=== PATIENT | female | born 2000 | race African-American/Black ===

== ENCOUNTER 2025-02-02 11:55 | Emergency (ER) | payer BC ==
--- OUTSIDE RECORDS SUMMARY | 2025-02-02 12:06 | XMS REPORT | Continuity of Care Document ---
Author Name Unknown Address [address] [place] [address] [facility] Address [address] [place] [address] Care Team Providers Care C Developer Name Role Phone PCP, PATIENT DOES NOT HAVE A Primary Care Physic [place] Unavailable RADHA KAHN Attending Clinician Unavailable Radha Kahn DNP Attending Clinician [phone] Doctor Unassigned, [place] Attending Clinician U DEVI Becker Attending Clinician Unavailable RENETTA GONZALEZ Attending Clinician RENETTA Mccann Attending Clinician Leti zuleta Doctor Unassigned, [place] Attending Clinician U alexis Muller, Ang - Db Attending Clinician Unavailable Devi Romo Attending Clinician [phone] [email or web address] Attending Clinician UnavailANTON Carrero Attending Clinician UnavailANTON Carrero Attending Clinician UnavailJAVAN Chung Attending Clinician Unavailable Javan Mayen MD Attending Clinician [phone] Unknown, Attending Attending Clinician UnavailJUANITA Foster Attending Clinician Unavailable Juanita Villagran PA-C Attending Clinician [phone], [facility] Attending Clinician Unavailable Jyoti Valentin MD Attending Clinician [phone] JYOTI VALENTIN Attending Clinician Unavailable LEVI CARROLL Attending Clinician Unavailable [email or web address] Admitting Clinician Unavaila bridget Payers Payer Name Policy Type Policy Number Effective Date Expirati on Date Source [facility] [id number] 2024 00:00:00 Problems Condition Name Condition Details Condition Category Status Onset Date Resolution Date Last Treatment Date Treating Clinician Comments Source Acute cystitis Acute Cystitis Problem Active 11-29 00:00: 00 [facility] Acute vaginitis Acute Vaginitis Problem Active 11-29 00:00: 00 [facility] Chronic anemia Chronic anemia Disease Active 03-23 00:00: 00 [facility] Eczema Eczema Disease Active 06-17 00:00: 00 Overview: Formattin g of this note might be different from the original. Overview: desonide [facility] Psoriasis Psoriasis Disease Active 06-17 00:00: 00 Overview: Formattin g of this note might be different from the original. Overview: Followed by Dr. Anjel hansen [facility] No known active problems No known active problems Disease [facility] Encounter for wellness examinatio n Encounter for wellness examinatio n Diagnosis Active [facility] Iron deficiency anemia, unspecifie d iron deficiency anemia type Iron deficiency anemia, unspecifie d iron deficiency anemia type Diagnosis Active [facility] Chlamydia infection Chlamydia infection Disease Resolve d 2022-10 00:00: 00 2024-12-21 00:00:00 2024-12-21 12:12:18 [facility] Nexplanon in place Nexplanon in place Disease Resolve d 2-05 00:00: 00 2021-08-27 00:00:00 2021-08-27 09:56:02 [facility] Allergies, Adverse Reactions, Alerts Allergy Name Allergy Type Status Severity Reaction(s) Onset Date Inactive Date Treating Clinician Comments Source NO KNOWN ALLERGIE S Drug Class Active [facility] Social History Social Habit Start Date Stop Date Quantity Comments Source History SDOH Alcohol Std Drinks [facility] History SDOH Alcohol Binge [facility] Alcoholic beverage intake 2024-12-21 00:00:00 2024-12-21 00:00:00 Current drinker of alcohol (finding) [facility] History of Social function 2024-03-23 00:00:00 2024-03-23 00:00:00 [facility] Alcohol intake 2023-09-20 00:00:00 2023-09-20 00:00:00 Current drinker of alcohol (finding) [facility] Tobacco use and exposure 2023-04-12 00:00:00 2023-04-12 00:00:00 Smokeless tobacco non-user [facility] Exposure to SARS-CoV-2 (event) 2022-01-03 00:00:00 2022-02-02 14:57:00 Not sure [facility] Alcohol Comment 2021-10-12 00:00:00 2021-10-12 00:00:00 rare [facility] History SDOH Alcohol Frequency 2019-08-10 00:00:00 2019-08-10 00:00:00 1 [facility] Sex assigned at 2001 00:00:00 2001 00:00:00 [facility] Smoking Status Start Date Stop Date Source Never smoked tobacco [facility] Medications Ordered Medication Name Filled Medication Name Start Date Stop Date Current Medication? Ordering Clinician Indication Dosage Frequency Signature (SIG) Comments Components Source metroNIDAZO LE 500 mg tablet 12-24 00:00: 00 01-01 05:59 :00 Yes [id number] 500mg Take 1 tablet by mouth in the morning and 1 tablet in the evening. Do all this for 7 days. [facility] fluconazole 150 mg tablet 12-24 00:00: 00 12-25 05:59 :00 Yes [id number] 150mg Take 1 tablet by mouth once now for 1 dose. [facility] ixekizumab (TALTZ AUTOINJECTO R, 2 PACK,) 80 mg/mL 12-21 12:12: 31 12-21 00:00 :00 No inject under the skin. [facility] Nitrofurant oin&Nit. Macrocryst (MACROBID) 100 mg capsule 12-21 00:00: 00 12-27 05:59 :00 Yes [id number] 100mg Take 1 capsule by mouth in the morning and 1 capsule in the evening. Do all this for 5 days. [facility] doxycycline hyclate 100 mg tablet 04-19 00:00: 00 09-20 00:00 :00 No [id number] 100mg Take 1 tablet by mouth in the morning and 1 tablet in the evening. [facility] adalimumab (HUMIRA PEN SC) 04-15 16:10: 43 04-15 00:00 :00 No inject under the skin. [facility] Nitrofurant oin&Nit. Macrocryst 100 mg capsule 04-12 00:00: 00 04-18 04:59 :00 No [id number] 100mg Take 1 capsule by mouth in the morning and 1 capsule in the evening. Do all this for 5 days. [facility] medroxyPROG ESTERone (PROVERA) 10 mg tablet 05 00:00: 00 04-15 00:00 :00 No [id number] 10mg Take 1 tablet by mouth daily. [facility] ixekizumab (TALTZ AUTOINJECTO R, 2 PACK,) 80 mg/mL 2019-10 210 14:16: 36 Yes inject under the skin. [facility] adalimumab (HUMIRA PEN SC) 05-14 16:20: 20 Yes inject under the skin. [facility] ibuprofen 800 mg tablet 05-14 00:00: 00 09-20 00:00 :00 No [id number] 800mg Take 1 tablet by mouth 3 (three) times daily with meals. [facility] Fluocinolon e-Shower Cap 0.01 % oil 2016-1016 00:00: 00 04-15 00:00 :00 No Apply to area(s). [facility] Macrobid 100 mg capsule Take 1 capsule every 12 hours by oral route for 5 days. Macrobid 100 mg capsule Take 1 capsule every 12 hours by oral route for 5 days. No 1capsul e(s) Q12H Macrobid 100 mg capsule Take 1 capsule every 12 hours by oral route for 5 days. [facility] Azithromyci n Azithromyci n Yes Na Doan 2 tablets on the first day, then 1 tablet daily for 4 days [facility] Immunizations Ordered Immunization Name Filled Immunization Name Date Status Comments Source Pneumococcal 20 Conjugate, PCV20 (Prevnar 20) 2024-03-23 00:00:00 Completed [facility] Influenza Virus Vaccine Quad IM 3+ YRS 2017-08-15 00:00:00 Completed [facility] Influenza Virus Vaccine Quad IM 3+ YRS 2017-08-15 00:00:00 Completed [facility] Influenza Virus Vaccine Quad IM 3+ 2017-08-15 00:00:00 Completed [facility] Influenza Virus Vaccine Quad IM 3+ 2017-08-15 00:00:00 Completed [facility] Influenza Virus Vaccine Quad IM 3+ 2017-08-15 00:00:00 Completed [facility] Influenza Virus Vaccine Quad IM 3+ YRS 2017-08-15 00:00:00 Completed Meningococcal Polysaccharide (groups A, C, Y and W-135) conjugate vaccine (MCV4P) 2014-05-25 00:00:00 Completed [facility] TDAP 2014-05-25 00:00:00 Completed [facility] Meningococcal Polysaccharide (groups A, C, Y and W-135) conjugate vaccine (MCV4P) 2014-05-25 00:00:00 Completed [facility] TDAP 2014-05-25 00:00:00 Completed [facility] Meningococcal Polysaccharide (groups A, C, Y and W-135) conjugate vaccine (MCV4P) 2014-05-25 00:00:00 Completed [facility] TDAP 2014-05-25 00:00:00 Completed [facility] Meningococcal Polysaccharide (groups A, C, Y and W-135) conjugate vaccine (MCV4P) 2014-05-25 00:00:00 Completed [facility] TDAP 2014-05-25 00:00:00 Completed [facility] Meningococcal Polysaccharide (groups A, C, Y and W-135) conjugate vaccine (MCV4P) 2014-05-25 00:00:00 Completed [facility] TDAP 2014-05-25 00:00:00 Completed [facility] Meningococcal Polysaccharide (groups A, C, Y and W-135) conjugate vaccine (MCV4P) 2014-05-25 00:00:00 Completed TDAP 2014-05-25 00:00:00 Completed HPV 2012-01-29 00:00:00 Completed [facility] HPV 2012-01-29 00:00:00 Completed [facility] HPV 2012-01-29 00:00:00 Completed [facility] HPV 2012-01-29 00:00:00 Completed [facility] HPV 2012-01-29 00:00:00 Completed [facility] HPV 2012-01-29 00:00:00 Completed [facility] HPV 2011-09-18 00:00:00 Completed [facility] HPV 2011-09-18 00:00:00 Completed [facility] HPV 2011-09-18 00:00:00 Completed [facility] HPV 2011-09-18 00:00:00 Completed [facility] HPV 2011-09-18 00:00:00 Completed [facility] HPV 2011-09-18 00:00:00 Completed [facility] HPV 2011-06-17 00:00:00 Completed [facility] Influenza Virus Vaccine Nasal 2011-06-17 00:00:00 Completed [facility] HPV 2011-06-17 00:00:00 Completed [facility] Influenza Virus Vaccine Nasal 2011-06-17 00:00:00 Completed [facility] HPV 2011-06-17 00:00:00 Completed [facility] Influenza Virus Vaccine Nasal 2011-06-17 00:00:00 Completed [facility] HPV 2011-06-17 00:00:00 Completed [facility] Influenza Virus Vaccine Nasal 2011-06-17 00:00:00 Completed [facility] HPV 2011-06-17 00:00:00 Completed [facility] Influenza Virus Vaccine Nasal 2011-06-17 00:00:00 Completed [facility] HPV 2011-06-17 00:00:00 Completed [facility] Influenza, Live, Trivalent, Intranasal (FLUMIST) 2011-06-17 00:00:00 Completed [facility] Hep B, Adol or Pedi Dosage 2009-09-18 00:00:00 Completed [facility] Varicella (varivax)(chicken pox) 2009-09-18 00:00:00 Completed [facility] HEPATITIS A 2009-09-18 00:00:00 Completed [facility] Hep B, Adol or Pedi Dosage 2009-09-18 00:00:00 Completed [facility] Varicella (varivax)(chicken pox) 2009-09-18 00:00:00 Completed [facility] HEPATITIS A 2009-09-18 00:00:00 Completed [facility] Hep B, Adol or Pedi Dosage 2009-09-18 00:00:00 Completed [facility] Varicella (varivax)(chicken pox) 2009-09-18 00:00:00 Completed [facility] HEPATITIS A 2009-09-18 00:00:00 Completed [facility] Hep B, Adol or Pedi Dosage 2009-09-18 00:00:00 Completed [facility] Varicella (varivax)(chicken pox) 2009-09-18 00:00:00 Completed [facility] HEPATITIS A 2009-09-18 00:00:00 Completed [facility] Hep B, Adol or Pedi Dosage 2009-09-18 00:00:00 Completed [facility] Varicella (varivax)(chicken pox) 2009-09-18 00:00:00 Completed [facility] HEPATITIS A 2009-09-18 00:00:00 Completed [facility] Hep B, Adol or Pedi Dosage 2009-09-18 00:00:00 Completed [facility] Varicella (varivax)(chicken pox) 2009-09-18 00:00:00 Completed [facility] HEPATITIS A 2009-09-18 00:00:00 Completed [facility] HEPATITIS A 2005-06-02 00:00:00 Completed [facility] HEPATITIS A 2005-06-02 00:00:00 Completed [facility] HEPATITIS A 2005-06-02 00:00:00 Completed [facility] HEPATITIS A 2005-06-02 00:00:00 Completed [facility] HEPATITIS A 2005-06-02 00:00:00 Completed [facility] HEPATITIS A 2005-06-02 00:00:00 Completed [facility] DTAP 2005-05-24 00:00:00 Completed [facility] IPV 2005-05-24 00:00:00 Completed [facility] MMR 2005-05-24 00:00:00 Completed [facility] DTAP 2005-05-24 00:00:00 Completed [facility] IPV 2005-05-24 00:00:00 Completed [facility] MMR 2005-05-24 00:00:00 Completed [facility] DTAP 2005-05-24 00:00:00 Completed [facility] IPV 2005-05-24 00:00:00 Completed [facility] MMR 2005-05-24 00:00:00 Completed [facility] DTAP 2005-05-24 00:00:00 Completed [facility] IPV 2005-05-24 00:00:00 Completed [facility] MMR 2005-05-24 00:00:00 Completed [facility] DTAP 2005-05-24 00:00:00 Completed [facility] IPV 2005-05-24 00:00:00 Completed [facility] MMR 2005-05-24 00:00:00 Completed [facility] DTAP 2005-05-24 00:00:00 Completed IPV 2005-05-24 00:00:00 Completed [facility] MMR 2005-05-24 00:00:00 Completed [facility] DTAP 2002-05-16 00:00:00 Completed [facility] MMR 2002-05-16 00:00:00 Completed [facility] Varicella (varivax)(chicken pox) 2002-05-16 00:00:00 Completed [facility] HIB 4 Dose Schedule 2002-05-16 00:00:00 Completed [facility] DTAP 2002-05-16 00:00:00 Completed [facility] MMR 2002-05-16 00:00:00 Completed [facility] Varicella (varivax)(chicken pox) 2002-05-16 00:00:00 Completed [facility] HIB 4 Dose Schedule 2002-05-16 00:00:00 Completed [facility] DTAP 2002-05-16 00:00:00 Completed [facility] MMR 2002-05-16 00:00:00 Completed [facility] Varicella (varivax)(chicken pox) 2002-05-16 00:00:00 Completed [facility] HIB 4 Dose Schedule 2002-05-16 00:00:00 Completed [facility] DTAP 2002-05-16 00:00:00 Completed [facility] MMR 2002-05-16 00:00:00 Completed [facility] Varicella (varivax)(chicken pox) 2002-05-16 00:00:00 Completed [facility] HIB 4 Dose Schedule 2002-05-16 00:00:00 Completed [facility] DTAP 2002-05-16 00:00:00 Completed [facility] MMR 2002-05-16 00:00:00 Completed [facility] Varicella (varivax)(chicken pox) 2002-05-16 00:00:00 Completed [facility] HIB 4 Dose Schedule 2002-05-16 00:00:00 Completed [facility] DTAP 2002-05-16 00:00:00 Completed MMR 2002-05-16 00:00:00 Completed [facility] Varicella (varivax)(chicken pox) 2002-05-16 00:00:00 Completed [facility] HIB 4 Dose Schedule 2002-05-16 00:00:00 Completed [facility] DTAP 2001 00:00:00 Completed [facility] IPV 2001 00:00:00 Completed [facility] HIB 4 Dose Schedule 2001 00:00:00 Completed [facility] DTAP 2001 00:00:00 Completed [facility] IPV 2001 00:00:00 Completed [facility] HIB 4 Dose Schedule 2001 00:00:00 Completed [facility] DTAP 2001 00:00:00 Completed [facility] IPV 2001 00:00:00 Completed [facility] HIB 4 Dose Schedule 2001 00:00:00 Completed [facility] DTAP 2001 00:00:00 Completed [facility] IPV 2001 00:00:00 Completed [facility] HIB 4 Dose Schedule 2001 00:00:00 Completed [facility] DTAP 2001 00:00:00 Completed [facility] IPV 2001 00:00:00 Completed [facility] HIB 4 Dose Schedule 2001 00:00:00 Completed [facility] DTAP 2001 00:00:00 Completed IPV 2001 00:00:00 Completed [facility] HIB 4 Dose Schedule 2001 00:00:00 Completed DTAP 2001 00:00:00 Completed [facility] Hep B, Adol or Pedi Dosage 2001 00:00:00 Completed [facility] IPV 2001 00:00:00 Completed [facility] HIB 4 Dose Schedule 2001 00:00:00 Completed [facility] DTAP 2001 00:00:00 Completed [facility] Hep B, Adol or Pedi Dosage 2001 00:00:00 Completed [facility] IPV 2001 00:00:00 Completed [facility] HIB 4 Dose Schedule 2001 00:00:00 Completed [facility] DTAP 2001 00:00:00 Completed [facility] Hep B, Adol or Pedi Dosage 2001 00:00:00 Completed [facility] IPV 2001 00:00:00 Completed [facility] HIB 4 Dose Schedule 2001 00:00:00 Completed [facility] DTAP 2001 00:00:00 Completed [facility] Hep B, Adol or Pedi Dosage 2001 00:00:00 Completed [facility] IPV 2001 00:00:00 Completed [facility] HIB 4 Dose Schedule 2001 00:00:00 Completed [facility] DTAP 2001 00:00:00 Completed [facility] Hep B, Adol or Pedi Dosage 2001 00:00:00 Completed [facility] IPV 2001 00:00:00 Completed [facility] HIB 4 Dose Schedule 2001 00:00:00 Completed [facility] DTAP 2001 00:00:00 Completed Hep B, Adol or Pedi Dosage 2001 00:00:00 Completed IPV 2001 00:00:00 Completed [facility] HIB 4 Dose Schedule 2001 00:00:00 Completed DTAP 2001 00:00:00 Completed [facility] Hep B, Adol or Pedi Dosage 2001 00:00:00 Completed [facility] IPV 2001 00:00:00 Completed [facility] HIB 4 Dose Schedule 2001 00:00:00 Completed [facility] DTAP 2001 00:00:00 Completed [facility] Hep B, Adol or Pedi Dosage 2001 00:00:00 Completed [facility] IPV 2001 00:00:00 Completed [facility] HIB 4 Dose Schedule 2001 00:00:00 Completed [facility] DTAP 2001 00:00:00 Completed [facility] Hep B, Adol or Pedi Dosage 2001 00:00:00 Completed [facility] IPV 2001 00:00:00 Completed [facility] HIB 4 Dose Schedule 2001 00:00:00 Completed [facility] DTAP 2001 00:00:00 Completed [facility] Hep B, Adol or Pedi Dosage 2001 00:00:00 Completed [facility] IPV 2001 00:00:00 Completed [facility] HIB 4 Dose Schedule 2001 00:00:00 Completed [facility] DTAP 2001 00:00:00 Completed [facility] Hep B, Adol or Pedi Dosage 2001 00:00:00 Completed [facility] IPV 2001 00:00:00 Completed [facility] HIB 4 Dose Schedule 2001 00:00:00 Completed [facility] DTAP 2001 00:00:00 Completed Hep B, Adol or Pedi Dosage 2001 00:00:00 Completed IPV 2001 00:00:00 Completed [facility] HIB 4 Dose Schedule 2001 00:00:00 Completed [facility] Hep B, Adol or Pedi Dosage 2001 00:00:00 Completed [facility] Hep B, Adol or Pedi Dosage 2001 00:00:00 Completed [facility] Hep B, Adol or Pedi Dosage 2001 00:00:00 Completed [facility] Hep B, Adol or Pedi Dosage 2001 00:00:00 Completed [facility] Hep B, Adol or Pedi Dosage 2001 00:00:00 Completed [facility] Hep B, Adol or Pedi Dosage 2001 00:00:00 Completed Influenza Virus Vaccine Quad IM 3+ YRS Unknown Completed [facility] Influenza Virus Vaccine Nasal Unknown Completed [facility] Meningococcal Polysaccharide (groups A, C, Y and W-135) conjugate vaccine (MCV4P) Unknown Completed [facility] TDAP Unknown Completed [facility] DTAP Unknown Completed [facility] Hep B, Adol or Pedi Dosage Unknown Completed [facility] HPV Unknown Completed [facility] IPV Unknown Completed [facility] MMR Unknown Completed [facility] Varicella (varivax)(chicken pox) Unknown Completed [facility] HEPATITIS A Unknown Completed [facility] HIB 4 Dose Schedule Unknown Completed [facility] DTAP Unknown Completed [facility] Hep B, Adol or Pedi Dosage Unknown Completed [facility] HPV Unknown Completed [facility] Influenza Virus Vaccine Quad IM 3+ YRS Unknown Completed [facility] Influenza Virus Vaccine Nasal Unknown Completed [facility] IPV Unknown Completed [facility] Meningococcal Polysaccharide (groups A, C, Y and W-135) conjugate vaccine (MCV4P) Unknown Completed [facility] MMR Unknown Completed [facility] TDAP Unknown Completed [facility] Varicella (varivax)(chicken pox) Unknown Completed [facility] HEPATITIS A Unknown Completed [facility] HIB 4 Dose Schedule Unknown Completed [facility] Pneumococcal 20 Conjugate, PCV20 (Prevnar 20) Unknown Completed [facility] Influenza Virus Vaccine Quad IM 3+ YRS Unknown Completed [facility] Influenza Virus Vaccine Nasal Unknown Completed [facility] Meningococcal Polysaccharide (groups A, C, Y and W-135) conjugate vaccine (MCV4P) Unknown Completed [facility] TDAP Unknown Completed [facility] Pneumococcal 20 Conjugate, PCV20 (Prevnar 20) Unknown Completed [facility] DTAP Unknown Completed [facility] Hep B, Adol or Pedi Dosage Unknown Completed [facility] HPV Unknown Completed [facility] IPV Unknown Completed [facility] MMR Unknown Completed [facility] Varicella (varivax)(chicken pox) Unknown Completed [facility] HEPATITIS A Unknown Completed [facility] HIB 4 Dose Schedule Unknown Completed [facility] DTAP Unknown Completed [facility] Hep B, Adol or Pedi Dosage Unknown Completed [facility] HPV Unknown Completed [facility] Influenza Virus Vaccine Quad IM 3+ YRS Unknown Completed [facility] Influenza Virus Vaccine Nasal Unknown Completed [facility] IPV Unknown Completed [facility] Meningococcal Polysaccharide (groups A, C, Y and W-135) conjugate vaccine (MCV4P) Unknown Completed [facility] MMR Unknown Completed [facility] TDAP Unknown Completed [facility] Varicella (varivax)(chicken pox) Unknown Completed [facility] HEPATITIS A Unknown Completed [facility] HIB 4 Dose Schedule Unknown Completed [facility] Pneumococcal 20 Conjugate, PCV20 (Prevnar 20) Unknown Completed [facility] Vital Signs Vital Name Observation Time Observation Value Comments S ource Systolic blood pressure 2024-12-21 17:47:00 133 mm[Hg] [facility] Diastolic blood pressure 2024-12-21 17:47:00 79 mm[Hg] [facility] Heart rate 2024-12-21 17:47:00 67 /min [facility] temperature 2024-12-21 17:47:00 36.72 Kaela [facility] Respiratory rate 2024-12-21 17:47:00 18 /min [facility] Body height 2024-12-21 17:47:00 167.6 cm [facility] Body weight 2024-12-21 17:47:00 70.217 kg [facility] BMI 2024-12-21 17:47:00 24.99 kg/m2 [facility] BP Diastolic 2024-11-29 00:00:00 84 mm[Hg] [facility] Height 2024-11-29 00:00:00 67 [in_i] [facility] BMI (Body Mass Index) 2024-11-29 00:00:00 24 kg/m2 [facility] Body Weight 2024-11-29 00:00:00 153.4 [lb_av] [facility] BP Systolic 2024-11-29 00:00:00 129 mm[Hg] [facility] Systolic blood pressure 2024-03-23 14:01:00 108 mm[Hg] [facility] Diastolic blood pressure 2024-03-23 14:01:00 73 mm[Hg] [facility] Heart rate 2024-03-23 14:01:00 65 /min [facility] Body height 2024-03-23 14:01:00 165.1 cm [facility] Body weight 2024-03-23 14:01:00 68.584 kg [facility] BMI 2024-03-23 14:01:00 25.16 kg/m2 [facility] Oxygen saturation in Arterial blood by Pulse oximetry 2024-03-23 14:01:00 100 /min [facility] Systolic blood pressure 2023-09-20 22:24:00 121 mm[Hg] [facility] Diastolic blood pressure 2023-09-20 22:24:00 77 mm[Hg] [facility] Heart rate 2023-09-20 22:24:00 64 /min [facility] Body temperature 2023-09-20 22:24:00 36.33 Kaela [facility] Respiratory rate 2023-09-20 22:24:00 16 /min [facility] Body height 2023-09-20 22:24:00 165.1 cm [facility] Body weight 2023-09-20 22:24:00 68.312 kg [facility] BMI 2023-09-20 22:24:00 25.06 kg/m2 [facility] Oxygen saturation in Arterial blood by Pulse oximetry 2023-09-20 22:24:00 99 /min [facility] Systolic blood pressure 2023-04-15 21:09:00 123 mm[Hg] [facility] Diastolic blood pressure 2023-04-15 21:09:00 74 mm[Hg] [facility] Heart rate 2023-04-15 21:09:00 71 /min [facility] Body temperature 2023-04-15 21:09:00 36.78 Kaela [facility] Respiratory rate 2023-04-15 21:09:00 16 /min [facility] Body height 2023-04-15 21:09:00 165.1 cm [facility] Body weight 2023-04-15 21:09:00 67.994 kg [facility] BMI 2023-04-15 21:09:00 24.94 kg/m2 [facility] Oxygen saturation in Arterial blood by Pulse oximetry 2023-04-15 21:09:00 98 /min [facility] Systolic blood pressure 2023-04-12 18:01:00 130 mm[Hg] [facility] Diastolic blood pressure 2023-04-12 18:01:00 83 mm[Hg] [facility] Heart rate 2023-04-12 18:01:00 78 /min [facility] Body temperature 2023-04-12 18:01:00 36.89 Kaela [facility] Respiratory rate 2023-04-12 18:01:00 18 /min [facility] Body height 2023-04-12 18:01:00 167.6 cm [facility] Body weight 2023-04-12 18:01:00 68.312 kg [facility] BMI 2023-04-12 18:01:00 24.31 kg/m2 [facility] Oxygen saturation in Arterial blood by Pulse oximetry 2023-04-12 18:01:00 99 /min [facility] Systolic blood pressure 2022-02-02 20:36:00 129 mm[Hg] [facility] Diastolic blood pressure 2022-02-02 20:36:00 86 mm[Hg] [facility] Heart rate 2022-02-02 20:36:00 60 /min [facility] Respiratory rate 2022-02-02 20:36:00 18 /min [facility] Body height 2022-02-02 20:36:00 165.1 cm [facility] Body weight 2022-02-02 20:36:00 78.019 kg [facility] BMI 2022-02-02 20:36:00 28.62 kg/m2 [facility] Procedures Procedure Date / Time Performed Performing Clinician Source POCT URINALYSIS W/O SPECIFIC GRAVITY 2024-12-21 17:50:00 Radha Kahn [facility] PNEUMOCOCCAL 20 CONJUGATE (PREVNAR 20) VACCINE 2024-03-23 14:14:41 Devi Dugan [facility] POCT URINALYSIS 2023-04-12 18:03:00 [facility] 2023-04-12 18:02:00 Puneet Patel [facility] CONSENT/REFUSAL FOR DIAGNOSIS AND TREATMENT 2023-04-12 17:49:29 Doctor Unassigned, [place] [facility] ASSIGNMENT OF BENEFITS 2023-04-12 17:49:13 Docto r Unassigned, [place] [facility] POCT TEST 2022-02-02 00:00:00 Gavin Villagran [facility] Encounters Start Date/Time End Date/Time Encounter Type Admission Type Attending Clinicians Care Facility Care Department Encounter ID Source 2025-01-25 13:30:00 2025-01-25 13:30:[address] [facility] [id number] [facility] 2025-01-15 16:30:00 2025-01-15 16:30:[address] RADHA US [facility] [id number] [facility] 2025-01-01 14:30:00 2025-01-01 14:30:00 Outpatient R RADHA KAHN [facility] [id number] [facility] 2024-12-28 00:00:00 2024-12-31 11:57:49 Telephone Radha Kahn [facility] NAL [facility]ILDING 1.2.840.114 350.1.13.10 4.2.7.2.686 [id number] [facility] 2024-11-27 00:00:00 2024-12-29 18:15:44 Patient Secure Msg Doctor Unassigned, [place] Doctor Unassigned, [place] [facility] 1..840.114 350.1.13.10 4.2.7.2.686 [id number] [facility] 2024-12-24 00:00:00 2024-12-24 08:41:26 Case Management Radha Kahn [facility] 1.840.114 350.1.13.10 4.2.7.2.686 [id number] [facility] 2024-12-21 11:30:00 2024-12-21 12:06:28 Outpatient R RADHA KAHN [facility] [id number] [facility] 2024-12-21 11:30:00 2024-12-21 12:06:28 Office Visit Radha Kahn [facility] 1..840.114 350.1.13.10 4.2.7.2.686 [id number] [facility] 2024-12-10 11:30:00 2024-12-10 11:30:00 Outpatient R DEVI DUGAN [facility] [id number] [facility] 2024-11-29 00:00:00 2024-11-29 00:00:00 Rossana Guerrero, REPEATER CHIEF: [address], [address], [place] [address] , Ph. [facility] - GC_GCBZW_La lisa Hancock* [id number] [facility] 2024-11-27 15:00:00 2024-11-27 15:00:00 Outpatient R SWAN-EVAN S, RENETTA SWAN-EVAN S, RENETTA [facility] [id number] [facility] 2024-09-24 08:30:00 2024-09-24 08:30:[address] DEVI SALMON [facility] [id number] [facility] 2024-04-19 15:30:00 2024-04-19 15:30:00 Outpatient R SWAN-EVAN S, RENETTA SWAN-EVAN S, RENETTA [facility] [id number] [facility] 2024-03-26 00:00:00 2024-03-26 09:03:53 Patient Secure Msg Doctor Unassigned, [place] [facility] 1.2.840.114 350.1.13.10 4.2.7.2.686 [id number] [facility] 2024-03-23 09:45:00 2024-03-23 10:00:00 Buildings And Grounds Director [facility] Lab[facility] 1.2.840.114 350.1.13.10 4.2.7.2.686 [id number] [facility] 2024-03-23 09:00:00 2024-03-23 09:29:[address]VI SALMON [facility] [id number] [facility] 2024-03-23 09:00:00 2024-03-23 09:29:30 [facility] 1..840.114 350.1.13.10 4.2.7.2.686 [id number] [facility] 2023-09-20 16:30:00 2023-09-20 16:30:00 Office Visit Renetta Dacosta [facility] 1..840.114 350.1.13.10 4.2.7.2.686 [id number] [facility] 2023-09-20 16:30:00 2023-09-20 16:28:29 Outpatient R DIRK S, RENETTA BENY-EVAN STOSINRENETTA [facility] [id number] [facility] 2023-09-01 15:30:00 2023-09-01 15:30:00 Outpatient R DIRK S, RENETTA BENY-EVAN S RENETTA [facility] [id number] [facility] 2023-08-30 00:00:00 2023-08-30 00:00:00 Outpatient GC_GCBZW_Ka diyala_S PRIV PRIV [id number] [facility] 2023-08-29 00:00:00 2023-08-29 00:00:00 Outpatient GC_GCBZW_Ka diyala_S PRIV PRIV [id number] [facility] 2023-07-18 10:30:00 2023-07-18 10:30:[address] [facility] [id number] [facility] 2023-04-19 00:00:00 2023-04-19 00:00:00 Telephone Renetta Dacosta [facility] 1.2.840.114 350.1.13.10 4.2.7.2.686 [id number] [facility] 2023-04-15 17:00:00 2023-04-15 17:15:00 Buildings And Grounds Director Visit Lab, Ang - Db Dirk orr, [facility] 1..840.114 350.1.13.10 4.2.7.2.686 [id number] [facility] 2023-04-15 16:30:00 2023-04-15 17:00:00 Office Visit Renetta Dacosta [facility] 1.84.114 350.1.13.10 4.2.7.2.686 [id number] [facility] 2023-04-15 16:30:00 2023-04-15 16:31:41 Outpatient R DIRK Orr RENETTA Orr, [facility] [id number] [facility] 2023-04-14 11:30:00 2023-04-14 11:30:00 Outpatient R ANTON POLANCO CHERYAL [facility] [id number] [facility] 2023-04-12 13:00:00 2023-04-12 13:06:[address] [facility] [id number] [facility] 2023-04-12 13:00:00 2023-04-12 13:06:01 Urgent Care Javan Mayen Unknown, Attending [facility] 1..840.114 350.1.13.10 4.2.7.2.686 [id number] [facility] 2023-04-12 00:00:00 2023-04-12 00:00:00 Orders Only Doctor Unassigned, [place] [facility] 1.2840.114 350.1.13.10 4.2.7.2.686 [id number] [facility] 2022-10-12 15:00:00 2022-10-12 15:00:[address] [facility] [id number] [facility] 2022-03-17 14:30:00 2022-03-17 14:30:00 Outpatient R JUANITA VILLAGRAN [facility] [id number] [facility] 2022-03-11 13:00:00 2022-03-11 13:00:00 Outpatient R JUANITA VILLAGRAN [facility] [id number] [facility] 2022-02-15 00:00:00 2022-02-15 00:00:00 Telephone Yann [facility] 1.2.840.114 350.1.13.10 4.2.7.2.686 [id number] [facility] 2022-02-02 16:00:00 2022-02-02 16:15:00 Buildings And Grounds Director Visit 2, Adc Lab Juanita Villagran [facility] NAL BUILDING 1.2.840.114 350.1.13.10 4.2.7.2.686 [id number] [facility] 2022-02-02 16:00:00 2022-02-02 16:00:00 Outpatient R JUANITA VILLAGRAN [facility] [id number] [facility] 2022-02-02 15:00:00 2022-02-02 15:50:58 Office Visit Juanita Villagran [facility] BU[facility] 1.2.840.114 350.1.13.10 4.2.7.2.686 [id number] [facility] 2022-02-02 15:00:00 2022-02-02 15:50:58 Outpatient R JUANITA VILLAGRAN [facility] [id number] [facility] 2021-10-12 14:04:29 2021-10-12 14:36:35 [facility] 1.2.840.114 350.1.13.10 4.2.7.2.686 [id number] [facility] 2021-10-12 14:00:00 2021-10-12 14:36:35 Outpatient Kate VILLAGRAN [facility] [id number] [facility] 2021-10-12 14:00:00 2021-10-12 14:00:00 Outpatient Kate VILLAGRAN [facility] [id number] [facility] 2021-10-12 00:00:00 2021-10-12 00:00:00 Orders Only Doctor Unassigned, [place] [facility] 1..840.114 350.1.13.10 4.2.7.2.686 [id number] [facility] 2021-08-27 09:02:03 2021-08-27 09:53:12 Office Visit Jyoti Valentin [facility] ELIZ ENCINAS [facility] 1.2.840.114 350.1.13.10 4.2.7.2.686 [id number] [facility] 2021-08-27 09:00:00 2021-08-27 09:53:[address]ERSON [facility] [id number] [facility] 2021-08-27 09:00:00 2021-08-27 09:00:[address]I ROBERSON [facility] [id number] [facility] 2021-08-27 00:00:00 2021-08-27 00:00:00 Orders Only Doctor Unassigned, [place] [facility] 1..840.114 350.1.13.10 4.2.7.2.686 [id number] [facility] 2021-06-25 08:30:00 2021-06-25 08:30:00 Outpatient Kate VILLAGRAN [facility] [id number] [facility] 2020-10-09 14:00:00 2020-10-09 14:00:[address]ANN [facility] [id number] [facility] 2020-09-01 10:00:00 2020-09-01 10:00:00 Outpatient J[address]ANITA SPANN [facility] [id number] [facility] 2020-05-14 16:00:00 2020-05-14 16:00:00 [address]I [address]ANO [facility] [id number] [facility] 2018-11-15 09:45:00 2018-11-15 09:45:00 [facility] [id number] Results Test Description Test Time Test Comments Results Result Co mments Source [facility] [id number] 11:04:13* Test Item Value Reference Range Interpretation Comme nts Leukocytes (test code = Leukocytes) 1+ Nitrite (test code = Nitrite) negative Urobilinogen (test code = Urobilinogen) Normal Protein (test code = Protein) Trace pH (test code = pH) 5.5 Blood (test code = Blood) Negative Specific [place] (test code = Specific [place]) 1.030 Ketone (test code = Ketone) Negative Bilirubin (test code = Bilirubin) Large Glucose (test code = Glucose) Negative Appearance (test code = Appearance) Slightly Cloudy Color (test code = Color) Dark Yellow [facility] [id number] 18:05:00* Test Item Value Reference Range Interpretation Comme nts POCT PREG (test code = 1605) Negative On board controls acceptable with C Line (test code = 3574) Yes POCT PREG LOT # (test code = 3575) POCT PREG TEST DATE ( test code = 3576) Lab Interpretation (test cod e = 15747-3) Normal [facility] W SPECIFIC [id number] 18:03:00* Test Item Value Reference Range Interpretation Comme nts POCT U SP GRAV (test code = 3255) 1.015 mg/dl 1.005-1.025 POCT PH U (test code = 3254) 7 mg/dl 5-8 POCT U LEUK EST (test code = 3263) trace Negative - Negative POCT U NIT (test code = 3262) neg Negative - Negati ve POCT U PROT (test code = 3259) trace Negative - Negative POCT U GLU (test code = 3256) neg Negative - Negati ve POCT U KETONE (test code = 3258) neg Negative - Negative POCT U UROBILI (test code = 3260) neg 0.2-1 POCT U BILI (test code = 3261) neg Negative - Negative POCT U BLD (test code = 3257) red Negative - Negati ve POCT U COLOR (test code = 3266) cloudy POCT U APPEAR (test code = 3267) Lab Interpretation (test cod e = 60093-7) Abnormal [facility] [id number] 20:44:00* Test Item Value Reference Range Interpretation Comme nts POCT PREG (test code = 1605) Negative On board controls acceptable with C Line (test code = 3574) Yes POCT PREG LOT # (test code = 3575) POCT PREG TEST DATE ( test code = 3576) [facility] [id number] 20:44:00* Test Item Value Reference Range Interpretation Comme nts POCT PREG (test code = 1605) Negative On board controls acceptable with C Line (test code = 3574) Yes POCT PREG LOT # (test code = 3575) POCT PREG TEST DATE ( test code = 3576) [facility] Notes Date/Time Note Provider Source 2024-12-31 11:57:31 Voicemail left for patient to return call. Will send patient a [employer] message. ANA Cerda MA [facility] 2024-12-28 13:26:36 Attempted to contact patient. No answer, VM left Ron Prasad RN 12/28/2024 1:26 PM ANA Prasad RN [facility] 2024-12-28 11:35:58 Images from the original note were not included. Erica Lizama is a 24 year old female Returning a call from Nurse Debora regarding test results. [employer]ER Sandy Staley [facility] 2024-03-23 09:45:00 Images from the original note were not included. Venipuncture collection performed by clean technique on the right anticubitus. Total of 1 attempts were made. Slight pressure and a bandage/dressing were applied to the site(s). The patient experienced no complications. The following specimens were processed according to instructions and sent to [facility] laboratories per lab order on 03/23/2024 : LT BLUE SST 2 RED LAV 1 PPT DK GREEN (LiHep) DK GREEN (SodH) GONSALES DK BLUE (K2) DK BLUE (S) ACD Blood Culture NIPT/NTD [facility]
[2025-02-02 13:10] LABS: Specific Gravity 1.024 (1.005-1.030)
[2025-02-02 13:16] LABS: Specific Gravity 1.024 (1.005-1.030); Urine Bacteria <20 /HPF (<20); Urine Bilirubin NEGATIVE (Negative); Urine Blood Negative (Negative); Urine Clarity Extremely Turbid (Clear); Urine Color Yellow (Yellow); Urine Culture Reflex Order REFLEXED; Urine Glucose NEGATIVE (Negative); Urine Ketones NEGATIVE (Negative); Urine Micro Reflex YN NO BILL MICROSCOPIC; Urine Mucus Slight /HPF (None Seen); Urine Nitrite NEGATIVE (Negative); Urine Protein 1+ (Negative); Urine RBC <5 /HPF (None Seen); Urine Urobilinogen Normal (Normal); Urine WBC >50 /HPF (<5); Urine WBC Clump Rare /HPF (None Seen); Urine pH 8.5 (5.0-7.0)
--- NOTE | 2025-02-02 13:34 | EDPHYS ---
Physician Documentation [facility] Name: Erica Mcconnell Age: 24 yrs Sex: Female : 2000 Arrival Date: 02/02/2025 Time: 11:55 Bed 11 Private MD: ED Physician Bruce Ann HPI: 02/02 12:27 This 24 yrs old Black Female presents to ER via Ambulatory with complaints of Urinary sb4 Problem. 12:27 The patient presents with urinary symptoms, dysuria, frequency. Onset: The sb4 symptoms/episode began/occurred 4 day(s) ago. Modifying factors: The symptoms are alleviated by nothing, the symptoms are aggravated by nothing. Associated signs and symptoms: The patient has no apparent associated signs or symptoms, Pertinent negatives: dyspareunia, fever, hematuria, vaginal bleeding, vaginal discharge, vomiting. The patient has experienced similar episodes in the past, a few times, today's symptoms are similar. dysuria and urinary frequency x 4 days. been taking cystex without relief in symptoms. no flank pain, fever, chills, nausea, vomiting. Historical: - Allergies: 12:30 No Known Allergies; iw - Home Meds: 12:30 None [Active]; iw - PMHx: 12:30 None; iw ROS: 12:29 Positive for urinary symptoms, urinary frequency, burning with urination, sb4 12:29 Constitutional: Negative for fever, chills, and weight loss, Abdomen/GI: Negative for abdominal pain, nausea, vomiting, diarrhea, and constipation, 12:29 All other systems are negative, Exam: 12:29 Constitutional: This is a well developed, well nourished patient who is awake, alert, sb4 and in no acute distress. Head/Face: Normocephalic, atraumatic. Eyes: Extra-ocular motions intact. Periorbital areas with no swelling, redness, or edema. ENT: Mucous membranes moist. Respiratory: No increased work of breathing, no retractions or nasal flaring. Abdomen/GI: Soft, non-tender, no distension. Skin: Warm, dry with normal turgor. Normal color with no rashes, no lesions, and no evidence of cellulitis. Vital Signs: 12:24 BP 137 / 85; Pulse 85; Resp 16; Temp 97.8; Pulse Ox 100% on R/A; Weight 69.4 kg; Height iw 5 ft. 6 in. ; 12:24 Body Mass Index 24.69 (69.40 kg, 167.64 cm) MDM: 12:01 Medical Screening Exam initiated sb4 13:34 Data reviewed: vital signs, nurses notes, lab test result(s), and as a result, I will sb4 discharge patient. Counseling: I had a detailed discussion with the patient and/or guardian regarding the historical points, exam findings, and any diagnostic results supporting the discharge/admit diagnosis, lab results, the need for outpatient follow up, for definitive care, to return to the emergency department if symptoms worsen or persist or if there are any questions or concerns that arise at home. 02/02 12:27 Order name: UAM; Complete Time: 13:33 sb4 02/02 12:27 Order name: Test, Urine; Complete Time: 13:13 sb4 02/02 13:35 Order name: Urine Culture EDMS Administered Medications: No medications were administered Disposition Summary: 02/02/25 13:33 Discharge Ordered Notes: Location: Home sb4 Problem: new sb4 Symptoms: are unchanged sb4 Condition: Stable sb4 Diagnosis - UTI/ Urinary tract infection, site not specified sb4 Followup: sb4 - With: Emergency Department - When: As needed - Reason: Fever > 102 F, Worsening of condition Discharge Instructions: - Discharge Summary Sheet sb4 - Urinary Tract Infection, Adult, [id number] sb4 Forms: - Antibiotic Education sb4 - Patient Portal Instructions sb4 - Leadership Thank You Letter sb4 Prescriptions: - Macrobid 100 mg Oral Capsule - take 1 capsule ORAL route every 12 hours for 7 days; 14 capsule; Refills: 0, sb4 Product Selection Permitted Signatures: Dispatcher [employer] Shahla Owens, RN RN Aleksandra Meyer, YE PASherie sb4
--- NOTE | 2025-02-02 13:34 | ER ---
Nurse's Notes [facility] Name: Erica Mcconnell Age: 24 yrs Sex: Female : 2000 Arrival Date: 02/02/2025 Time: 11:55 Bed 11 Private MD: Diagnosis: UTI/ Urinary tract infection, site not specified Presentation: 02/02 12:24 Chief complaint: Patient states: UTI symptoms since Tuesday , pain and burning and iw urgency. Coronavirus screen: At this time, the client does not indicate any symptoms associated with coronavirus-19. Ebola Screen: No symptoms or risks identified at this time. Initial Sepsis Screen: Does the patient meet any 2 criteria? No. Patient's initial sepsis screen is negative. Does the patient have a suspected source of infection? No. Patient's initial sepsis screen is negative. Risk Assessment: Do you want to hurt yourself or someone else? Patient reports no desire to harm self or others. 12:24 Method Of Arrival: Ambulatory iw 12:24 Acuity: MIC 4 iw Triage Assessment: 14:24 General: Appears in no apparent distress. Behavior is calm, cooperative. iw Historical: - Allergies: 12:30 No Known Allergies; iw - Home Meds: 12:30 None [Active]; iw - PMHx: 12:30 None; iw Screenin:33 [facility] ED Fall Risk Assessment (Adult) History of falling in the last 3 months, iw including since admission No falls in past 3 months (0 pts) Confusion or Disorientation No (0 pts) Intoxicated or Sedated No (0 pts) Impaired Gait No (0 pts) Mobility Assist Device Used No (0 pt) Altered Elimination No (0 pt) Score/Fall Risk Level 0 - 2 = Low Risk Oriented to surroundings, Maintained a safe environment. Abuse screen: Denies threats or abuse. Denies injuries from another. Nutritional screening: No deficits noted. Tuberculosis screening: No symptoms or risk factors identified. Assessment: 12:30 General: Appears in no apparent distress. Behavior is calm, cooperative. Pain: iw Complains of pain in suprapubic area. Neuro: Level of Consciousness is awake, alert, obeys commands, Oriented to person, place, time, situation, Moves all extremities. Full function. Cardiovascular: Patient's skin is warm and dry. Respiratory: Respiratory effort is even, unlabored, Respiratory pattern is regular. : Reports burning with urination. Vital Signs: 12:24 BP 137 / 85; Pulse 85; Resp 16; Temp 97.8; Pulse Ox 100% on R/A; Weight 69.4 kg; Height iw 5 ft. 6 in. ; 12:24 Body Mass Index 24.69 (69.40 kg, 167.64 cm) iw ED Course: 12:00 Patient arrived in ED. im 12:00 Aleksandra Celestin PA-C is PHCP. sb4 12:00 Bruce Ann MD is Attending Physician. sb4 12:25 Triage completed. iw 12:30 Arm band placed on right wrist. iw 12:51 Test, Urine Sent. zm 12:51 UAM Sent. zm 12:51 Urine collected: clean catch specimen, clear. zm 14:32 No provider procedures requiring assistance completed. Patient did not have IV access iw during this emergency room visit. 14:34 Shahla Espinal, RN is Primary Nurse. iw Administered Medications: No medications were administered Medication: 14:30 VIS not applicable for this client. iw Outcome: 13:33 Discharge ordered by . sb4 14:33 Discharged to home ambulatory, iw 14:33 Condition: good 14:33 Discharge instructions given to patient, Instructed on discharge instructions, follow up and referral plans. medication usage, Demonstrated understanding of instructions, follow-up care, medications, Prescriptions given X 1, 14:34 Patient left the ED. iw Signatures: Shahla Espinal, RN RN Julia Le Aleksandra Celestin PA-C PA-C sb4 Indigo Veliz im
[2025-02-02 15:08] VITALS: BP 137/85; TEMP 97.8; O2SAT 100
== END 2025-02-02 14:34 | disposition home or self-care (01) ==
LOC: ER 11:55
DX: N39.0 Urinary tract infection, site not specified (principal)
CPT/HCPCS: 81001; 81025; 87077; 87086; 87088; 87186; 99283